=== PATIENT | female | born 1990 | race Caucasian/White ===

== ENCOUNTER 2023-05-29 08:06 | Emergency (ER) | payer BC, SELFPAY ==
[2023-05-29] VITALS (7 sets, daily range): BP systolic 116–160; BP diastolic 74–98; PULSE 80–106; RESP 16; TEMP 36.6–36.9; O2SAT 96–97; BMI 47.4
--- NOTE | 2023-05-29 08:23 | CT_ITS ---
FINAL REPORT CLINICAL HISTORY: previous hysterectomy/rlq abd pain COMPARISON: None FINDINGS: CT OF THE ABDOMEN AND PELVIS WITH CONTRAST Axial CT images of the abdomen and pelvis were obtained after the administration of IV contrast. Coronal reformatted images were also obtained and reviewed. This study was performed with techniques to keep radiation doses as low as reasonably achievable (ALARA). Individualized dose reduction techniques using automated exposure control or adjustment of mA and/or kV according to the patient's size were employed. Abdomen: There is mild bibasilar atelectasis. The heart is normal in size. The liver is fatty infiltrated. The spleen is enlarged measuring 15 cm in length. No adrenal mass is present. The pancreas has an unremarkable appearance. There is a less than 3 mm nonobstructing right renal stone. The aorta is normal in caliber. There is no free fluid or adenopathy. No mass or abnormal fluid collection is seen. Pelvis: The appendix normal. The urinary bladder is unremarkable. Post hysterectomy. There is a cystic and solid area in the right adnexa. The fluid component measures up to 9.4 cm. The more solid component measures 3.5 cm and may represent the right ovary. Fluid next to it may represent cystic mass extending from the right ovary or adjacent fluid collection. There is a small amount of pelvic free fluid. There are borderline sized inguinal nodes. There is no evidence of bowel obstruction. IMPRESSION: Fatty liver. Splenomegaly. Nonobstructing right renal stone measuring less than 3 mm. Cystic mass or fluid collection adjacent to the right ovary. Small amount of pelvic free fluid. Reviewed, Interpreted and Dictated by Jairon Reis III, MD Transcribed by Marina Yusuf Authenticated and . [facility]
--- NOTE | 2023-05-29 08:24 | ED_ITS ---
Discharge Plan Disposition Patient Disposition: Home, Self-Care Referrals Follow up/Referrals: Alicia Garcia DO [Staff Physician] - See instructions Activity Restrictions/Add. Instructions Additional Instructions/Restrictions: At this time it was felt you are safe to be discharged home. If new or worsening symptoms please do not hesitate to return the emergency department. Please call and schedule an appointment with Dr. Garcia as soon as you are able. Clinical Impressions Clinical Impression: Hydrosalpinx Instructions Patient Instructions: DI for Acute Abdominal Pain Discharge ED Provider: Marino Bueno General Adult HPI General Chief complaint: Abdominal Pain Stated complaint: Abd Pain Time Seen by Provider: 05/29/23 08:08 History of Present Illness HPI narrative: Patient is a 32-year-old female with past medical history of uterine pathology status post hysterectomy and bilateral salpingectomy 1 year ago who presents emergency department for evaluation of abdominal pain. History is obtained by patient at bedside. Onset was acute, over the last 24 to 48 hours. Right lower quadrant abdominal pain. External dysesthesia over her vulva, no vaginal bleeding or discharge. No significant discharge, there is some pain after defecation. No vomiting. No other acute complaints at this time. Related Data Allergies Allergy/AdvReac Type Severity Reaction Status Date / Time shellfish derived Allergy Verified 05/29/23 08:26 [facility] Disclaimer: The information contained in this section may have been updated after the patient was seen, as this information can be updated by other users. Medical History (Updated 05/29/23 @ 12:16 by Marino Bueno MD) Anemia Diabetes type 2, controlled Surgical History (Updated 05/29/23 @ 08:28 by Radha Romero RN) H/O: hysterectomy Social History Smoking Status: Current every day smoker alcohol intake: never current occupational status: other Travel in the last 8 weeks: None ROS Obtained: Yes Systems reviewed as appropriate & no additional complaints except as documented Physical Exam General General appearance: alert and in no apparent distress Head Head exam: atraumatic and normocephalic Eye Eye exam: Present EOMI ENT ENT exam: Present mucous membranes moist Neck Neck exam: Present normal inspection Chest Chest inspection: Present normal inspection and symmetric chest wall rise Respiratory Respiratory exam: Present normal lung sounds bilaterally; Absent respiratory distress Cardiovascular Cardiovascular exam: Present regular rate and normal rhythm Abdominal Exam Abdominal exam: Present soft and tenderness (Mild, right lower quadrant) Extremities Exam Extremities exam: Present normal inspection Neurological Exam Neurological exam: Present alert Psychiatric Psychiatric exam: Present normal affect Skin Skin exam: Present warm and dry Medical Decision Making Jonathan Inquiry Pt receiving controlled substance: No Vital Signs: 05/29/23 08:14 05/29/23 08:19 05/29/23 08:39 Temperature 97.9 F Temperature Source Oral Pulse Rate 102 H 91 H Pulse Rate [Left] 106 H Respiratory Rate 16 Blood Pressure 144/87 H 128/81 Blood Pressure [Right Arm] 144/87 H Blood Pressure Mean Blood Pressure Mean [Right Arm] 106 Blood Pressure Source [Right Arm] Automatic Cuff Blood Pressure Position [Right Arm] Sitting 02 Sat by Pulse Oximetry 96 97 96 Oxygen Delivery Method Room Air Room Air 05/29/23 09:21 05/29/23 09:31 05/29/23 11:29 Temperature Temperature Source Pulse Rate 87 89 85 Pulse Rate [Left] Respiratory Rate Blood Pressure 140/79 160/98 H 116/74 Blood Pressure [Right Arm] Blood Pressure Mean 113 Blood Pressure Mean [Right Arm] Blood Pressure Source [Right Arm] Blood Pressure Position [Right Arm] 02 Sat by Pulse Oximetry 97 96 97 Oxygen Delivery Method Room Air Room Air Room Air Lab Data Lab Results 05/29/23 08:12: Urine Color Yellow, Urine Appearance Clear, Urine pH 5.5, Ur Specific [place] 1.020, Urine Protein Negative, Urine Glucose (UA) 3+, Urine Ketones Negative, Urine Blood Negative, Urine Nitrate Negative, Urine Bilirubin Negative, Urine Urobilinogen 0.2, Ur Leukocyte Esterase Negative, Urine RBC Occasional, Urine WBC Occasional, Ur Squamous Epith Cells 3-5, Urine Bacteria Trace, Urine Yeast Occasional 05/29/23 08:21: WBC 12.6 H, RBC 5.37, Hgb 14.9, Hct 45.6, MCV 84.9, MCH 27.8, MCHC 32.7, RDW 14.0, Plt Count 280, MPV 7.1 L, Neut % (Auto) 67.9, Lymph % (Auto) 25.8, Edmunds % (Auto) 4.2, Eos % (Auto) 1.0, Baso % (Auto) 1.1, Neut # (Auto) 8.6 H, Lymph # (Auto) 3.2, Edmunds # (Auto) 0.5, Eos # (Auto) 0.1, Baso # (Auto) 0.1, Sodium 136, Potassium 4.1, Chloride 103, Carbon Dioxide 23, Anion Gap 14.1, BUN 12, Creatinine 0.50 L, Estimated Creat Clear 151, Estimated GFR 143, Est GFR ( Amer) 173, Glucose 292 H, Calcium 8.7, Total Bilirubin 0.9, AST 35, ALT 42, Alkaline Phosphatase 170 H, Total Protein 7.5, Albumin 4.2, Globulin 3.3 H, Albumin/Globulin Ratio 1.3, Serum HCG, Qual Negative 05/29/23 08:58: VBG pH 7.31, VBG pCO2 40.5, VBG pO2 46.0 H, VBG HCO3 20.1 L, VBG Total CO2 21.4 L, VBG O2 Saturation 77.9 H, VBG Base Excess -6.1 L, VBG Lactic Acid 1.4 05/29/23 : Lipase 68 05/29/23 08:21 05/29/23 08:21 Orders (Tests/Meds): ED MEDICATIONS Generic Name Dose Route Start Last Admin Trade Name Freq PRN Reason Stop Dose Admin Sodium Chloride 10 ml 05/29/23 08:27 Sodium Chloride 0.9% 10ml Flush Syringe IV 06/28/23 08:26 NEEDED PRN Maintain IV Site Sodium Chloride 10 ml 05/29/23 09:20 05/29/23 09:21 Sodium Chloride 0.9% 10ml Syr (Rad Only) IV 06/28/23 09:19 10 ml NEEDED PRN Administration Maintain IV Site Discontinued Medications Generic Name Dose Route Start Last Admin Trade Name Freq PRN Reason Stop Dose Admin Acetaminophen 1,000 mg 05/29/23 08:23 05/29/23 08:31 Acetaminophen 500mg Tab PO 05/29/23 08:24 1,000 mg ONCE ONE Administration Belladonna Alkaloids 60 ml 05/29/23 08:23 05/29/23 08:31 Belladonna Alkaloids 60 Ml Ml PO 05/29/23 08:24 60 ml ONCE ONE Administration Diphenhydramine HCl 50 mg 05/29/23 09:04 05/29/23 09:05 Diphenhydramine 50mg/Ml Vial IV 05/29/23 09:05 50 mg ONCE ONE Administration Lactated Ringer's 1,000 mls @ 999 mls/hr 05/29/23 08:27 05/29/23 08:44 Lactated Ringer's 1000 Ml Bag IV 05/29/23 09:27 999 mls/hr .Q1H1M ONE Administration Iopamidol 75 ml 05/29/23 09:20 05/29/23 09:21 Iopamidol-370 (76%);100ml Bottle IV 05/29/23 09:21 75 ml ONCE ONE Administration Ketorolac Tromethamine 30 mg 05/29/23 08:23 05/29/23 08:31 Ketorolac 30mg/Ml Vial IV 05/29/23 08:24 30 mg ONCE ONE Administration ORDERS Category Date Time Status CT abdomen pelvis w con Stat Cat Scan 05/29/23 08:23 Completed US transvaginal Stat Exams 05/29/23 10:33 Completed CMP [Comprehensive Metabolic Panel] Stat Lab 05/29/23 08:21 Completed Complete Blood Count Auto Diff Stat Lab 05/29/23 08:21 Completed HCG Qualitative, Serum Stat Lab 05/29/23 08:21 Completed Lactate Venous Stat Lab 05/29/23 08:58 Completed Lipase Stat Lab 05/29/23 Completed UA [Urinalysis and Microscopic] Stat Lab 05/29/23 08:12 Completed VBG [Venous Blood Gas] Stat RT 05/29/23 08:58 Completed Medical Decision Narrative: In summary patient is a 32-year-old female past medical history described above presents emergency department for evaluation abdominal pain in the setting of previous uterine pathology status post total hysterectomy and bilateral salpingectomy. Patient is hemodynamically stable nontoxic-appearing upon arrival, afebrile, slight tachycardia. Differential diagnosis includes appendicitis, pelvic abscess, among others. Workup will be conducted with hematologic labs, urinalysis, CT abdomen pelvis IV contrast. Initial inventions include Tylenol, Toradol, GI cocktail. 1 L crystalloid bolus will be administered. Initial workup reviewed by me, hematologic labs remarkable for leukocytosis 12.6, compensated acid-base status, hyperglycemia glucose 292 in the setting of -gliflozin use, hCG negative. Urinalysis interpreted by me and not consistent with infection. With respect to [employer] history information was obtained via fax from [facility], patient has been 4 times and has 3 living children with 2 deliveries, 1 vaginal delivery, 1 miscarriage, has surgical history of , history of dyspareunia and abnormal uterine bleeding, previous endometrial ablation and underwent LAVH, BS, culpopexy, cystoscopy April 28, 2022. CT imaging informally visualized by me, it appears there is a complex fluid collection in the right lower quadrant. Formal read shows fatty liver, splenomegaly, nonobstructing right renal stone, cystic mass or fluid collection adjacent to the right ovary with small amount of pelvic free fluid. Case was discussed with Dr. Garcia regarding further management who recommends transvaginal ultrasound which will be ordered by me. Given that patient is afebrile and not in shock or ill-appearing infectious cause with free fluid in her pelvis is less likely and therefore empiric antibiotics will be deferred. Transvaginal ultrasound reviewed by me, right tubular fluid-filled juxta uterine structure separate from the ovary. Flow to right ovary is normal. Formal read consistent with right hydrosalpinx. The case was discussed with Dr. De Paz regarding management, we agree infection is exceedingly unlikely given patient's constellation of symptoms. On my personal exam patient is not peritonitic, she also does not have fever. Given this outpatient management is appropriate at this time and patient was given return precautions. Critical Care Critical Care Time Critical Care Time: No
--- NOTE | 2023-05-29 08:25 | PC.NURSE ---
Pt is changing into a gown, warm blanket taken to her for comfort.
[2023-05-29 08:29] LABS: Microscopic, Urine URINE MICROSCOPIC (MICROSCOPIC)
[2023-05-29 08:30] LABS: Appearance,Urine CLEAR (Clear); Bilirubin,Urine Negative (Negative); Blood, Urine Negative (Negative); Color,Urine YELLOW (Yellow); Glucose,Urine (UA) 3+ (Negative); Ketones,Urine Negative (Negative); Leukocyte Esterase,Urine Negative (Negative); Nitrate,Urine Negative (Negative); PH,Urine 5.5 (5.0-8.5); Protein,Urine Negative (Negative); Urobilinogen,Urine 0.2 EU/dl (0.2)
[2023-05-29] MEDS: ACETAMINOPHEN 500MG TAB 1000 MG PO (08:31)
[2023-05-29] MEDS: BELLADONNA ALKALOIDS 60 ML ML PO (08:31)
[2023-05-29] MEDS: KETOROLAC 30MG/ML VIAL 30 MG IV (08:31)
[2023-05-29 08:32] LABS: Basophils # 0.1 K/mm3 (0-0.2); Basophils % 1.1 % (0.1-2.0); Eosinophils # 0.1 K/mm3 (0.0-0.4); Hematocrit 45.6 % (37.0-47.0); Hemoglobin 14.9 g/dL (12.2-16.2); Lymphocytes # 3.2 K/mm3 (0.7-4.5); Lymphocytes % 25.8 % (10-50); Mean Corpuscular HGB Conc 32.7 g/dL (31.8-35.4); Mean Corpuscular Hemoglobin 27.8 pg (27.0-31.2); Mean Corpuscular Volume 84.9 fl (81-99); Mean Platelet Volume 7.1 fl (7.4-10.4); Monocytes # 0.5 K/mm3 (0.1-1.0); Monocytes % 4.2 % (1.7-9.3); Neutrophils # 8.6 K/mm3 (1.8-7.8); Neutrophils % 67.9 % (37.0-80.0); Platelet Count 280 K/mm3 (142-424); Red Blood Count 5.37 M/mm3 (4.20-5.40); White Blood Count 12.6 K/mm3 (4.8-10.8)
[2023-05-29 08:38] LABS: Alanine Aminotransferase 42 U/L (12-78); Albumin Level 4.2 g/dl (3.5-5.0); Albumin/Globulin Ratio 1.3 (1.1-1.8); Alkaline Phosphatase 170 U/L (38-126); Anion Gap 14.1 mEq/L (5-15); Aspartate Amino Transferase 35 U/L (14-36); Bilirubin,Total 0.9 mg/dl (0.2-1.3); Blood Urea Nitrogen 12 mg/dl (7-17); Calcium 8.7 mg/dl (8.4-10.2); Carbon Dioxide 23 mmol/L (22.0-30.0); Chloride 103 mmol/L (98-107); Creatinine Clearance Estimated 151 mL/min (50-200); Estimated Glomerular Filt Rate 143 ml/min (>60); GFR (African American) 173 ML/MIN (>60); Globulin 3.3 g/dL (1.3-3.2); Glucose 292 mg/dl (74-100); Potassium 4.1 mmoL/L (3.5-5.1); Sodium 136 mmol/L (136-145); Total Protein,Serum 7.5 g/dl (6.3-8.2)
--- NOTE | 2023-05-29 08:40 | PC.NURSE ---
I went bedside with as a witness for a external vaginal exam.
[2023-05-29] MEDS: LACTATED RINGERS 1000ML 1,000 ML 999 ML IV (08:44)
--- NOTE | 2023-05-29 08:59 | PC.NURSE ---
lab and resp both called on new orders placed
[2023-05-29 09:02] LABS: HCG Qualitative, Serum Negative (Negative)
[2023-05-29 09:05] LABS: Lactate Venous 1.4 mmol/L (0.4-2.0); VBG Base Excess -6.1 mmol/L (-2.4-2.3); VBG HCO3 20.1 mmol/L (23-30); VBG Oxygen Saturation 77.9 % (50-70); VBG PCO2 40.5 mmol/L (35-51); VBG PH 7.31 mmol/L (7.31-7.41); VBG Total CO2 21.4 mmol/L (23-27)
[2023-05-29] MEDS: diphenhydrAMINE 50MG/ML VIAL 50 MG IV (09:05)
--- NOTE | 2023-05-29 09:06 | PC.NURSE ---
pt gone to ultrasound
--- NOTE | 2023-05-29 09:07 | PC.NURSE ---
pt is gone to ct
[2023-05-29 09:10] LABS: Lipase 68 U/L (23-300)
[2023-05-29 09:11] LABS: Bacteria,Urine Trace /lpf; RBC,Urine Occasional #/hpf (0-3); WBC,Urine Occasional #/hpf (0-3); Yeast,Urine Occasional /lpf
--- NOTE | 2023-05-29 09:18 | PC.NURSE ---
pt arrived back to room
[2023-05-29] MEDS: IOPAMIDOL-370 (76%);100ML BOTTLE 75 ML IV (09:21)
[2023-05-29] MEDS: SODIUM CHLORIDE 0.9% 10ML SYR (RAD ONLY) 10 ML IV (09:21)
--- NOTE | 2023-05-29 10:03 | PC.NURSE ---
pt is ambulating to restroom
--- NOTE | 2023-05-29 10:07 | PC.NURSE ---
pt is back in room resting in bed
--- NOTE | 2023-05-29 10:09 | PC.NURSE ---
Spoke with [facility] to obtain medical record per Dr. Bueno request
--- NOTE | 2023-05-29 10:29 | PC.NURSE ---
paged for er
--- NOTE | 2023-05-29 10:33 | US_ITS ---
PROCEDURE INFORMATION: Exam: US Pelvis, Transvaginal Exam date and time: 05/29/2023 10:58 AM Age: 32 years old Clinical indication: Pelvic pain; Additional info: Rlq fluid collection adjacent to ovary TECHNIQUE: Imaging protocol: Real-time transvaginal pelvic ultrasound with image documentation. Transvaginal imaging was used for better evaluation of the endometrium, adnexa, and/or cervix. COMPARISON: CT ABDOMEN PELVIS W CON 05/29/2023 7:59 AM FINDINGS: Uterus: Status post hysterectomy. Right ovary/adnexa: There is a right tubular, fluid-filled, juxta uterine structure that appears separate from the ovary. right ovary measures 4.2 x 3.0 x 3.6 cm (24 mL) Ovarian stroma is unremarkable. There is normal arterial inflow and venous outflow. There is mild amount of right adnexal free fluid Left ovary/adnexa: Left ovary is not well evaluated likely attenuated by overlying bowel gas. Intraperitoneal space: Small amount of free fluid. IMPRESSION: Right hydrosalpinx.
--- NOTE | 2023-05-29 11:21 | PC.NURSE ---
PT IS AT ULTRASOUND
--- NOTE | 2023-05-29 11:22 | PC.NURSE ---
Pt returned from u/s
--- NOTE | 2023-05-29 11:49 | PC.NURSE ---
PT updated that we are waiting on u/s results. No needs voiced. Call light within reach.
--- NOTE | 2023-05-29 12:13 | PC.NURSE ---
paged for er md
== END 2023-05-29 12:30 | disposition home or self-care (01) ==
PROVIDERS: Emergency Provider Emergency Medicine
DX: R10.32 Left lower quadrant pain (principal); N70.91 Salpingitis, unspecified; E11.9 Type 2 diabetes mellitus without complications; F17.200 Nicotine dependence, unspecified, uncomplicated
CPT/HCPCS: 74177; 76830; 80053; 81001; 82803; 83605; 83690; 84703; 85025; 96361; 96374; 96375; 99285; Q9967

== ENCOUNTER 2023-05-31 17:07 | Outpatient (CLI) | payer BC, SELFPAY ==
[2023-06-02 10:20] LABS: Neisseria gonorrhoeae, NAA Negative (Negative)
== END 2023-05-31 23:59 ==
LOC: LAB.DROPOF 17:08
PROVIDERS: PCP Obstetrics & Gynecology; Visit Provider Obstetrics & Gynecology
DX: Z11.3 Encounter for screening for infections with a predominantly sexual mode of transmission (principal); R10.2 Pelvic and perineal pain
CPT/HCPCS: 87491; 87591

== ENCOUNTER 2023-07-14 11:59 | Outpatient (CLI) | payer BC, SELFPAY ==
[2023-07-14 13:09] LABS: Alanine Aminotransferase 35 U/L (12-78); Albumin Level 4.2 g/dl (3.5-5.0); Albumin/Globulin Ratio 1.4 (1.1-1.8); Alkaline Phosphatase 117 U/L (38-126); Anion Gap 14.8 mEq/L (5-15); Aspartate Amino Transferase 30 U/L (14-36); Bilirubin,Total 1.3 mg/dl (0.2-1.3); Blood Urea Nitrogen 11 mg/dl (7-17); Calcium 9.6 mg/dl (8.4-10.2); Carbon Dioxide 24 mmol/L (22.0-30.0); Chloride 101 mmol/L (98-107); Chol/HDL Ratio 4.3 (1-3.5); Cholesterol 203 mg/dl (140-200); Estimated Glomerular Filt Rate 83 ml/min (>60); GFR (African American) 100 ML/MIN (>60); Globulin 2.9 g/dL (1.3-3.2); Glucose 388 mg/dl (74-100); HDL Cholesterol 47 mg/dl (40-60); Magnesium 1.5 mg/dl (1.6-2.3); Potassium 4.8 mmoL/L (3.5-5.1); Sodium 135 mmol/L (136-145); Total Protein,Serum 7.1 g/dl (6.3-8.2); Triglycerides 230 mg/dl (30-150); VLDL Cholesterol 46 mg/dL (0-40)
[2023-07-14 13:19] LABS: Direct LDL Cholesterol 123.67 mg/dL (100-129)
[2023-07-14 13:26] LABS: Free T4 (Free Thyroxine) 1.05 ng/dl (0.78-2.19)
[2023-07-14 13:28] LABS: 25-OH Vitamin D, Total 15.3 ng/mL (30-100)
[2023-07-14 13:41] LABS: Thyroid Stimulating Hormone 1.95 uIU/mL (0.465-4.68)
[2023-07-14 16:06] LABS: Hemoglobin A1C 9.2 % (4.0-6.0)
[2023-07-14 18:03] LABS: Amphetamine/Metha Screen,Urine Negative ng/ml (<1000); Barbiturates Screen,Urine Negative ng/ml (<200)
[2023-07-14 18:04] LABS: Benzodiazepines Screen,Urine Negative ng/ml (<200)
[2023-07-14 18:05] LABS: Cocaine Screen,Urine Negative ng/ml (<300)
[2023-07-14 18:05] LABS: Creatinine,Urine Random 56 mg/dL (Not Estab.); Microalbumin < 6.000 mg/L (0-16.7)
[2023-07-14 18:06] LABS: Methadone Screen,Urine Negative ng/ml (<300)
[2023-07-14 18:07] LABS: Opiate Screen,Urine Negative ng/ml (<300); Phencyclidine Screen,Urine Negative ng/ml (<25)
[2023-07-14 18:10] LABS: Cannabinoid Screen,Urine Negative ng/ml (<50)
== END 2023-07-14 23:59 | disposition home or self-care (01) ==
PROVIDERS: Visit Provider Psychiatry & Neurology Psychiatry
DX: Z79.899 Other long term (current) drug therapy (principal); E11.65 Type 2 diabetes mellitus with hyperglycemia; E55.9 Vitamin D deficiency, unspecified; D64.9 Anemia, unspecified; F41.9 Anxiety disorder, unspecified; F43.10 Post-traumatic stress disorder, unspecified; E66.01 Morbid (severe) obesity due to excess calories; Z68.43 Body mass index [BMI] 50.0-59.9, adult
CPT/HCPCS: 36415; 80053; 80061; 80307; 82043; 82306; 82570; 83036; 83735; 84439; 84443

== ENCOUNTER 2023-08-02 12:45 | Outpatient (CLI) | payer BC, SELFPAY ==
--- NOTE | 2023-08-02 12:46 | US_ITS ---
PROCEDURE: US TRANSVAGINAL CLINICAL INDICATION: pelvic pain COMPARISON: US US TRANSVAGINAL from 05/29/2023 FINDINGS: Transvaginal sonographic images of the pelvis were obtained. UTERUS: Surgically absent The vaginal cuff appears normal and intact. LEFT OVARY: 2.9 cmx2.9 cmx1.7cm with a volume of 7.3ml. The left ovary appears polycystic with multiple small peripheral follicles. There is a trace amount of free fluid adjacent to the left ovary. RIGHT OVARY: 3.9 cmx 2.7 cmx3.2cm with a volume of 17.8ml. There is a follicle measuring 2.3 cm x 1.8 cm x 2.4 cm. Both ovaries are seen and appear normal. Doppler flow to both ovaries are seen. There is trace fluid in the cul-de-sac. IMPRESSION: 1. The uterus is surgically absent. The vaginal vault is intact and appears normal. 2. Both ovaries are seen and appear normal. 3. Within the right ovary is a follicle measuring 2.4 cm. The left ovary has a polycystic appearance. 4. There is trace fluid in the cul-de-sac and trace fluid adjacent to the left ovary. Dictated by: Laith Hendricks MD 08/02/2023 15:03 Laith Hendricks MD in OV 08/02/2023 15:03
== END 2023-08-02 23:59 | disposition home or self-care (01) ==
LOC: RAD 12:46
PROVIDERS: PCP Obstetrics & Gynecology; Visit Provider Obstetrics & Gynecology
DX: R10.2 Pelvic and perineal pain (principal)
CPT/HCPCS: 76830

== ENCOUNTER 2024-08-05 10:28 | Outpatient (CLI) | payer BC, SELFPAY ==
[2024-08-05 11:46] LABS: Basophils # 0.1 K/mm3 (0-0.2); Basophils % 0.4 % (0.1-2.0); Eosinophils # 0.1 Kmm3 (0.0-0.4); Eosinophils % 0.7 % (0.1-12.0); Hematocrit 45.6 % (37.0-47.0); Immature Granulocytes # 0.06 10^3uL; Immature Granulocytes % 0.4 %; Lymphocytes # 3.4 K/mm3 (0.7-4.5); Lymphocytes % 24.4 % (10-50); Mean Corpuscular HGB Conc 32.9 g/dL (31.8-35.4); Mean Corpuscular Hemoglobin 27.3 pg (27.0-31.2); Mean Corpuscular Volume 83.1 fl (81-99); Mean Platelet Volume 8.6 fl (7.4-10.4); Monocytes # 0.6 K/mm3 (0.1-1.0); Monocytes % 4.2 % (1.7-9.3); Neutrophils # 9.7 K/mm3 (1.8-7.8); Neutrophils % 69.9 % (37.0-80.0); Nucleated Red Blood Cells # 0 10^3/uL; Nucleated Red Blood Cells % 0 %; Platelet Count 305 K/mm3 (142-424); Red Blood Count 5.49 M/mm3 (4.20-5.40); White Blood Count 13.9 K/mm3 (4.8-10.8)
[2024-08-05 11:59] LABS: Creatinine,Urine Random 69 mg/dL (Not Estab.)
[2024-08-05 12:01] LABS: Amphetamine/Metha Screen,Urine Positive ng/ml (<1000); Barbiturates Screen,Urine Negative ng/ml (<200)
[2024-08-05 12:02] LABS: Benzodiazepines Screen,Urine Negative ng/ml (<200)
[2024-08-05 12:03] LABS: Cocaine Screen,Urine Negative ng/ml (<300); Methadone Screen,Urine Negative ng/ml (<300)
[2024-08-05 12:04] LABS: Cannabinoid Screen,Urine Negative ng/ml (<50); Opiate Screen,Urine Negative ng/ml (<300)
[2024-08-05 12:05] LABS: Phencyclidine Screen,Urine Negative ng/ml (<25)
[2024-08-05 12:06] LABS: Alanine Aminotransferase 47 U/L (12-78); Albumin Level 4.3 g/dl (3.5-5.0); Albumin/Globulin Ratio 1.5 (1.1-1.8); Alkaline Phosphatase 116 U/L (38-126); Anion Gap 11.9 mEq/L (5-15); Aspartate Amino Transferase 33 U/L (14-36); Blood Urea Nitrogen 9 mg/dl (7-17); Calcium 9.1 mg/dl (8.4-10.2); Carbon Dioxide 26 mmol/L (22.0-30.0); Chloride 102 mmol/L (98-107); Chol/HDL Ratio 3.9 (1-3.5); Cholesterol 169 mg/dl (140-200); Estimated Glomerular Filt Rate 114 ml/min (>60); GFR (African American) 138 ML/MIN (>60); Globulin 2.8 g/dL (1.3-3.2); Glucose 108 mg/dl (74-100); HDL Cholesterol 43 mg/dl (40-60); Magnesium 2.1 mg/dl (1.6-2.3); Microalbumin < 6.000 mg/L (0-16.7); Potassium 3.9 mmoL/L (3.5-5.1); Sodium 136 mmol/L (136-145); Total Protein,Serum 7.1 g/dl (6.3-8.2); Triglycerides 131 mg/dl (30-150); VLDL Cholesterol 26 mg/dL (0-40)
[2024-08-05 12:15] LABS: Hemoglobin A1C 6.2 % (4.0-6.0)
[2024-08-05 12:16] LABS: Direct LDL Cholesterol 104.11 mg/dL (100-129)
[2024-08-05 12:24] LABS: 25-OH Vitamin D, Total 15.8 ng/mL (30-100)
[2024-08-05 12:37] LABS: Thyroid Stimulating Hormone 2.06 uIU/mL (0.465-4.68)
== END 2024-08-05 23:59 | disposition home or self-care (01) ==
LOC: LAB 10:29
PROVIDERS: Psychiatry & Neurology Psychiatry; Visit Provider Nurse Practitioner Family
DX: E11.65 Type 2 diabetes mellitus with hyperglycemia (principal); E55.9 Vitamin D deficiency, unspecified; E66.01 Morbid (severe) obesity due to excess calories; K59.00 Constipation, unspecified; F43.10 Post-traumatic stress disorder, unspecified; F90.9 Attention-deficit hyperactivity disorder, unspecified type; F41.9 Anxiety disorder, unspecified; F32.A Depression, unspecified; D64.9 Anemia, unspecified; Z79.899 Other long term (current) drug therapy; Z68.41 Body mass index [BMI] 40.0-44.9, adult; Z91.198 Patient's noncompliance with other medical treatment and regimen for other reason
CPT/HCPCS: 36415; 80053; 80061; 80307; 82043; 82306; 82570; 83036; 83735; 84443; 85025

== ENCOUNTER 2024-12-16 13:26 | Outpatient (CLI) | payer BC, SELFPAY ==
--- OUTSIDE RECORDS SUMMARY | 2024-12-16 13:29 | XMS_ITS | Patient Health Record ---
Author Organization [facility] Address [address] [place] [address] Care Team Providers Care Caddy Master Name Role Phone Alicia Granados Unavailable [phone] Reason For Referral No Information Social History Social History Sexual History: Social Info Question Answer Notes Sexual History Had sex in the past 12 months (vaginal, oral, or anal)? Yes Drugs/Alcohol: Social Info Question Answer Notes Drugs Have you used drugs other than those for medical reasons in the past 12 months? No Alcohol Screen Did you have a drink containing alcohol in the past year? Yes Points 0 Interpretation Negative Tobacco Use: Social Info Question Answer Notes Tobacco Use/Smoking Are you a former smoker Tobacco use other than smoking: Are you an other tobac co user? No Plan Of Treatment No Information
[2024-12-16 16:21] LABS: Alanine Aminotransferase 44 U/L (12-78); Albumin Level 4.4 g/dl (3.5-5.0); Albumin/Globulin Ratio 1.3 (1.1-1.8); Alkaline Phosphatase 106 U/L (38-126); Anion Gap 14.5 mEq/L (5-15); Aspartate Amino Transferase 30 U/L (14-36); Bilirubin,Total 1.0 mg/dl (0.2-1.3); Blood Urea Nitrogen 13 mg/dl (7-17); Calcium 9.3 mg/dl (8.4-10.2); Carbon Dioxide 26 mmol/L (22.0-30.0); Chloride 103 mmol/L (98-107); Cholesterol 196 mg/dl (140-200); Creatinine,Serum 0.60 mg/dl (0.52-1.04); Estimated Glomerular Filt Rate 114 ml/min (>60); GFR (African American) 138 ML/MIN (>60); Globulin 3.4 g/dL (1.3-3.2); Glucose 108 mg/dl (74-100); HDL Cholesterol 44 mg/dl (40-60); Potassium 4.5 mmoL/L (3.5-5.1); Sodium 139 mmol/L (136-145); Total Protein,Serum 7.8 g/dl (6.3-8.2); Triglycerides 133 mg/dl (30-150)
[2024-12-16 16:38] LABS: 25-OH Vitamin D, Total 24.8 ng/mL (30-100)
[2024-12-16 19:21] LABS: Hemoglobin A1C 6.0 % (4.0-6.0)
== END 2024-12-16 23:59 | disposition home or self-care (01) ==
LOC: LAB 13:26
PROVIDERS: Visit Provider Nurse Practitioner Family
DX: E11.65 Type 2 diabetes mellitus with hyperglycemia (principal); E55.9 Vitamin D deficiency, unspecified; F32.A Depression, unspecified; K59.00 Constipation, unspecified; D64.9 Anemia, unspecified; F41.9 Anxiety disorder, unspecified; E66.01 Morbid (severe) obesity due to excess calories; Z79.899 Other long term (current) drug therapy; Z68.41 Body mass index [BMI] 40.0-44.9, adult
CPT/HCPCS: 36415; 80053; 80061; 82306; 83036